=== PATIENT | male | born 2005 | race Two or more races ===

== ENCOUNTER 2024-03-28 20:02 | Emergency (ER) | payer MEDICAID, SELFPAY ==
[2024-03-28] VITALS (8 sets, daily range): BP systolic 101–116; BP diastolic 60–86; PULSE 81–105; RESP 16–22; TEMP 36.9; O2SAT 95–100; BMI 33.3
--- NOTE | 2024-03-28 21:21 | PD.EDALCOH ---
ED Alcohol RME/HPI General Chief Complaint: Alcohol Stated Complaint: ETOH Time Seen by Provider: 03/28/24 20:59 Arrival date/time: 03/28/24 20:02 This is a 19-year-old male that is celebrating his birthday. Per patient mother he drank an entire bottle of Zbigniew Norton. Patient has been vomiting. Mother reports history of asthma. Per mother the bottle was approximately 750 mL. Mother states that he also possibly fell in the bathroom. Per patient mother he initially locked himself in the bathroom and they had to break the door down. Related Data Home Medications ?Medication ?Instructions ?Recorded ?Confirmed albuterol sulfate 90 mcg/actuation 2 puff inhalation Q6H PRN 03/28/24 03/28/24 aerosol inhaler Shortness Of Breath Or Wheezing Allergies Allergy/AdvReac Type Severity Reaction Status Date / Time NKA* Allergy Uncoded 07/17/09 20:57 Review of Systems Review of Systems Systems Reviewed: All systems reviewed, normal except as documented Past Medical History Past Medical History Comments PMH COMMENT: asthma ED Exam General General appearance: Present in no apparent distress and other Head Head exam: Present atraumatic Eye Eye exam: Present normal appearance, PERRL and EOMI ENT ENT exam: Present normal exam, normal oropharynx and mucous membranes moist Neck Neck exam: Present normal inspection, full ROM and trachea midline Chest Chest inspection: Present normal inspection and symmetric chest wall rise Respiratory Respiratory exam: Present normal lung sounds bilaterally Cardiovascular Cardiovascular exam: Present regular rate, normal rhythm and normal heart sounds Abdominal Exam Abdominal exam: Present soft Extremities Exam Extremities exam: Present normal inspection and full ROM Back Exam Back exam: Present normal inspection and full ROM Neurological Exam Neurological exam: Present other (Patient able to answer questions, sleepy on assessment. Patient follows commands no focal deficits.) Psychiatric Psychiatric exam: Present normal affect and normal mood Skin Skin exam: Present warm, dry and intact Course Quality Measures none Orders Category Date Time Status IV [Insert IV] STAT Care 03/28/24 21:[address] head/brain wo con Stat Exams 03/28/24 21:[address] head/brain wo con Stat Exams 03/29/24 03:56 Completed XR chest 1V Stat Exams 03/28/24 21:24 Completed Alcohol, Blood Medical Stat Lab 03/28/24 21:47 Completed CBC Stat Lab 03/28/24 21:47 Completed Comprehensive Metabolic Panel Stat Lab 03/28/24 21:47 Completed Drug Screen,Urine Stat Lab 03/29/24 00:36 Completed Lipase Stat Lab 03/28/24 21:47 Completed Urinalysis, C/S if Indicated Stat Lab 03/29/24 00:36 Completed Ondansetron Inj [Zofran Inj] Med 03/28/24 21:25 Discontinued 4 mg IV X1 ONE Ringers Lactated 1000 ml [Lactated Ringers] 1,000 ml Med 03/28/24 21:21 Discontinued IV 999 mls/hr Sodium Chloride 0.9% 1000 ml [Ns] 1,000 ml Med 03/28/24 21:23 Discontinued IV 999 mls/hr Vital Signs Vital signs: Vital Signs Temperature 98.4 F 03/28/24 20:10 Pulse Rate 81 03/28/24 20:10 Respiratory Rate 18 03/28/24 20:10 Blood Pressure 116/65 03/28/24 20:10 Pulse Oximetry (%) 98 03/28/24 20:10 Oxygen Delivery Method Room Air 03/28/24 20:10 Discharge Plan Plan Patient Disposition: HOME (Self Care) Disposition Comment: Stable for discharge Patient condition on transfer: Stable Prescriptions/Referrals Prescriptions/Med Rec: No Action albuterol sulfate 90 mcg/actuation HFA aerosol inhaler 2 puff INH Q6H PRN (Reason: Shortness Of Breath Or Wheezing) Rx Instructions: administer with spacer Referrals: [facility] [Outside] - In 1 week Problem List Clinical Impression: Alcoholic intoxication Patient/Caregiver Discharge Instructions Discharge Activity: activity as tolerated Education Materials: ED Alcohol Intoxication Additional Instructions: It is very important that you do not drink alcohol. I do not believe that it agrees with you. You should be particularly careful about drinking entire bottles of Zbigniew Norton. If you notice any worsening of your nausea and vomiting please return to the ER right away. Otherwise you should follow-up with your primary care doctor within the next several days. Print Language: Thai Stand Alone Forms: Anabelle Award Info., Patient Portal Info Letter PA/HOT METAL CRANE OPERATOR Supervising Physician PA/HOT METAL CRANE OPERATOR Supervising Physician: melo Gutiérrez MDM Narrative MDM Narrative: Patient CBC unremarkable but does have a mild elevation in his neutrophil count, BMP unremarkable lipase unremarkable, alcohol level is 268 still waiting on urine sample. I ordered 2 L of IV fluids for hydration. Mother at bedside. ct came back and shows: Suspicious for minimal hemorrhage in the anterior inner hemispheric fissure, recommend 24-hour, no mass effect follow-up CT brain scan Discussed case with that will take over care at 2300. Patient data External records reviewed:: [facility] previous records Clinical information provided by:: patient and parent Social determinants that could affect healthcare access:: none Patient has the following chronic illnesses:: none How is presenting disease/condition affected by chronic disease/condition?: no chronic disease Evaluation data The following diagnostics were reviewed and interpreted by me:: lab results and radiology exam(s) Lab and/or radiology exams considered but not ordered:: see note Interpretation Summary: see note Medications / Prescriptions Medications or Prescriptions considered but not ordered:: none Medication administrations:: Medication Administration History Discontinued Medications Lactated Ringer's (Lactated Ringers) 1,000 mls @ 999 mls/hr IV .Q1H1M ONE Stop: 03/28/24 22:21 Last Infusion: 03/28/24 22:56 Dose: Infused Documented By: Admin: 03/28/24 22:04 Dose: 999 mls/hr Documented By: ROMAINE Sodium Chloride (Ns) 1,000 mls @ 999 mls/hr IV .Q1H1M ONE Stop: 03/28/24 22:23 Last Infusion: 03/28/24 22:57 Dose: Infused Documented By: Admin: 03/28/24 22:03 Dose: 999 mls/hr Documented By: ROMAINE Ondansetron HCl (Ondansetron Inj 2 Mg/Ml Inj 2 Ml) 4 mg IV X1 ONE; Protocol Stop: 03/28/24 21:26 Last Admin: 03/28/24 21:59 Dose: 4 mg Documented By: ROMAINE [facility] Consultations Consultation(s) initiated? (list below): No Diagnosis Most likely diagnosis given after review of the tests above:: alcohol intoxication Admission Indicated Admission indicated?: not indicated Admission Request Was there a request for admission?: No Disposition Plan Disposition Plan: Discharge Discharge Attestation Discharge Attestation: The patient and all family members were given an opportunity to ask questions and understood the discharge instructions. Discharge instructions specifically effects, indications for sooner follow up or return to the emergency department, and the expected course of current diagnosis. Patient condition: Stable
--- NOTE | 2024-03-28 21:24 | XR_ITS ---
Examination: AP chest single view Technique one AP portable upright chest single view Exam date and time: March 28, 2024 2130 hrs. Comparison July 01, 2008 Indications: Onset chest pain today. Findings: Reduced inspiratory effort Vascular congestion No lobar pneumonia Impression: Recommend repeat chest, better inspiratory effort
--- NOTE | 2024-03-28 21:29 | XR_ITS ---
Examination: CT brain head without contrast. 2-D sagittal coronal reconstructions Date and time of exam:March 20, 2024 10:20 PM Indications: Patient fell 3 hours ago with injury to the head, head pain CTDI: vol (mGy):54.6 DLP: (mGycm):1108 Technique: Multiple CT axial sections of the brain have been obtained, 5 mm slice thickness. Contrast has not been administered. 2-D sagittal, coronal reconstructions have been obtained Low dose protocols were performed. One or more of the following dose reduction techniques were used; automated exposure control, adjustment of the mA and/or KV according to patient size, use of iterative reconstruction technique. Findings: No significant ventricular enlargement. Minimal hyperdensity in the anterior interhemispheric fissure, axial image 22 No mass effect or midline shift Basal cisterns are not remarkable. Fourth ventricle is midline. Cranial vault intact. Impression: Suspicious for minimal hemorrhage in the anterior inner hemispheric fissure, recommend 24-hour, no mass effect follow-up CT brain scan
[2024-03-28 21:54] LABS: Basophils % (Auto) 0 % (0-2.5); Eosinophils % (Auto) 0 % (0-10); Hematocrit 42.7 % (41.0-53.0); Hemoglobin 14.9 g/dL (13.5-16.0); Immature Granulocytes % (Auto) 1 % (0-0); Immature Granulocytes Auto 0.07 Thou/mm3 (0.00-0.00); Lymphocytes # (Auto) 1.1 Thou/mm3 (1.0-4.8); Lymphocytes % (Auto) 11 % (10-50); Mean Corpuscular HGB Conc 34.9 g/dl (31.0-37.0); Mean Corpuscular Volume 86 fL (80-100); Monocytes # (Auto) 0.4 Thou/mm3 (0.0-0.8); Monocytes % (Auto) 4 % (0-12); Neutrophils # (Auto) 8.5 Thou/mm3 (1.8-7.7); Neutrophils % (Auto) 85 % (37-80); Nucleated Red Blood Cell % 0 /100 WBC (0); Platelet Count 316 Thou/mm3 (140-440); RDW Standard Deviation 39.5 fL (35.1-43.9); Red Blood Count 4.96 Miln/mm3 (4.50-5.90); White Blood Count 10.1 Thou/mm3 (3.8-10.6)
[2024-03-28] MEDS: ONDANSETRON INJ 2 MG/ML INJ 2 ML 4 MG IV (21:59)
[2024-03-28] MEDS: SODIUM CHLORIDE 0.9% 1000 ML 1,000 ML 999 ML IV (22:03)
[2024-03-28] MEDS: RINGERS LACTATED 1000 ML 1,000 ML 999 ML IV (22:04)
[2024-03-28 22:20] LABS: Alanine Aminotransferase 24 U/L (10-49); Albumin, Serum 4.6 gm/dL (3.5-5.0); Albumin/Globulin Ratio 2.2 (1.2-2.2); Alcohol, Blood Medical 268.3 mg/dL (0-10.0); Alkaline Phosphatase 97 U/L (46-116); Anion Gap 10 (7-16); Aspartate Amino Transferase 20 U/L (0-34); BUN/Creatinine Ratio 15 Ratio (12-20); Bilirubin,Total 0.3 mg/dL (0.3-1.2); Blood Urea Nitrogen 12 mg/dL (9-23); Carbon Dioxide 24.7 mMol/L (20.0-31.0); Chloride 104 mMol/L (98-107); Creatinine (Component) 0.8 mg/dL (0.6-1.3); Estimated Creatinine Clearance 151.2 mL/min (>60); Globulin 2.1 gm/dL (2.3-3.5); Glucose 125 mg/dL (74-106); Lipase 46 U/L (12-53); Osmolality,Calculated 278 (275-295); Potassium 3.4 mMol/L (3.4-5.1); Sodium 139 mMol/L (136-145); Total Protein 6.7 gm/dL (5.7-8.2); eGFR > 60 See Note
--- NOTE | 2024-03-28 23:07 | PD.EDADDENDU ---
Emergency Room Addendum Addendum Narrative: 2300: Care assumed from Lorie Croft NP. Past medical, surgical, social and family history reviewed. Vitals and home medications reviewed. Results and treatment plan discussed. I will assume the care of the patient at this time and will follow the patient, pending consultation with a neurosurgeon. Please refer to the emergency department record for history and examination from initial visit. 2320: Discussed case with [Dr. Rosales] from [neurosurgery] regarding [possible transfer]. Discussed patients ED course, exam findings, labs, and radiology results. Recommends to get a repeat CT head 6 hours after the initial one was completed, and if it has not gotten worse, the patient does not need to be transferred. 0600: Care signed out to Dr. Delcid (emergency physician). Past medical, surgical, social and family history reviewed. Vitals and home medications reviewed. Results and treatment plan discussed. They will assume the care of the patient at this time and will follow the patient, pending repeat CT head.
[2024-03-29] VITALS (25 sets, daily range): BP systolic 98–149; BP diastolic 56–85; PULSE 76–114; RESP 8–26; O2SAT 90–99
[2024-03-29 00:42] LABS: Collection Type, Urine Voided; Squamous Epithelial Cell,Urine 0 /hpf (0-5)
[2024-03-29 00:58] LABS: Bilirubin,Urine Negative (Negative); Blood,Urine Negative (Negative); Clarity,Urine Clear (Clear/Hazy); Color,Urine Colorless (Lt Yel-Yel); Culture Indicated,Urine Not Indicated; Glucose, Urine Negative (Negative); Ketones,Urine 1+ (Negative); Leukocyte Esterase,Urine Negative (Negative); Nitrite,Urine Negative (Negative); PH,Urine 6.5 (5.0-7.0); Protein,Urine Negative (Neg - Trace); RBC,Urine 1 /hpf (0-3); Specific Gravity,Urine 1.014 (1.001-1.035); Urobilinogen,Urine Negative mg/dL (0.0-1.0); WBC,Urine 1 /hpf (0-5)
[2024-03-29 01:05] LABS: Amphetamine/Methamp Scrn,U Negative (Negative); Barbiturate Screen,Urine Negative (Negative); Benzodiazepines Screen,Urine Negative (Negative); Benzoylecgonine Screen, Ur Negative (Negative); Fentanyl Screen,Urine Negative (Negative); Opiate Screen,Urine Negative (Negative); THC Screen,Urine Negative (Negative)
--- NOTE | 2024-03-29 03:54 | PC.NURSE ---
Ana DYE CONTACTED PT PKT SENT. REQUESTING ANOTHER CT [address] LUBIN SPOKE WITH NEURO DOCTOR.
--- NOTE | 2024-03-29 03:56 | XR_ITS ---
Examination: CT brain head without contrast. 2-D sagittal coronal reconstructions Date and time of exam:March 29, 2024. 0453 hrs. Indications: Patient fell last night with injury to the head, small area of possible hemorrhage in the interhemispheric fissure anteriorly on CT brain scan March 28, 2024 10:28 PM CTDI: vol (mGy):53.8 DLP: (mGycm):1081 Technique: Multiple CT axial sections of the brain have been obtained, 5 mm slice thickness. Contrast has not been administered. 2-D sagittal, coronal reconstructions have been obtained Low dose protocols were performed. One or more of the following dose reduction techniques were used; automated exposure control, adjustment of the mA and/or KV according to patient size, use of iterative reconstruction technique. Findings: No significant ventricular enlargement. Intra-axial or extra-axial hemorrhage density is not seen. No mass effect or midline shift Basal cisterns are not remarkable. Fourth ventricle is midline. Cranial vault intact. Impression: No current hemorrhage identified, no mass effect or midline shift
--- NOTE | 2024-03-29 05:56 | PRELIM_ITS ---
CT scan of the head without intravenous contrast (axial sections with sagittal and coronal reformats) March 29, 2024 0450 hours Clinical History: head injury Comparison: No prior examination is avail able for comparison. Findings:No evidence of intracranial hemorrhage, mass effect or midline shift. T he ventricles and CSF spaces are unremarkable. The calvarium is intact. There is mild mucosal thicken ing in bilateral ethmoid sinuses. There are small retention cysts or polyps in bilateral maxillary an d sphenoid sinuses. The mastoid air cells and the other visualized paranasal sinuses are clear.Impres wallace:No evidence of intracranial hemorrhage, midline shift or calvarial fracture. Report Electronical ly Signed By: Kevin Ojeda 03/29/2024 5:55:37 AM [EST]
== END 2024-03-29 06:23 | disposition home or self-care (01) ==
PROVIDERS: Nurse Practitioner Family; Emergency Provider Emergency Medicine
DX: F10.129 Alcohol abuse with intoxication, unspecified (principal); Y90.8 Blood alcohol level of 240 mg/100 ml or more; S09.90XA Unspecified injury of head, initial encounter; W19.XXXA Unspecified fall, initial encounter; J45.909 Unspecified asthma, uncomplicated
CPT/HCPCS: 36415; 70450; 71045; 80053; 80307; 80320; 81001; 83690; 85025; 99284; J2405; J7030; J7120; G0480